=== PATIENT | male | born 1975 | race Caucasian/White ===

== ENCOUNTER 2017-12-24 23:04 | Inpatient (IN) | payer OTHER ==
[~2017-12-24] VITALS: Ht 185.4 cm; Wt 80.8 kg
[~2017-12-24 23:04] MED LIST: ALPOS OP; XALOS OP
[2017-12-24 23:07] VITALS: BP 159/104
--- NOTE | 2017-12-24 23:10 | NUR ---
PATIENT TO BED 2
--- NOTE | 2017-12-24 23:11 | NUR ---
PATIENT PRESENTS TO ED WITH LOWER ABDOMINAL PAIN X5 HOURS. PT STATES N/V; SKIN IS PINK/WARM/DRY; AAOX4 WITH EVEN AND STEADY GAIT; LUNGS CLEAR BL; HR EVEN AND REGULAR; PT DENIES ANY FEVER, CP, SOB, OR COUGH AT THIS TIME; PATIENT STATES PAIN OF 8/10 AT THIS TIME; VSS; PATIENT POSITIONED FOR COMFORT; HOB ELEVATED; BEDRAILS UP X2; BED DOWN. ER MD MADE AWARE OF PT STATUS.
[2017-12-24] MEDS ORDERED: MORPHINE SULFATE 4 MG/ML SYR IVP ONE (23:25)
[2017-12-24] MEDS ORDERED: NACL 0.9% 1,000 ML IV ONE (23:25)
[2017-12-24] MEDS ORDERED: KETOROLAC 30 MG/ML VIAL IVP ONE (23:25)
[2017-12-24 23:53] LABS: BASOPHILS % (AUTO) 0.2 % (0.0-2.0); EOSINOPHILS # (AUTO) 0.1 K/uL (0-0.4); EOSINOPHILS % (AUTO) 0.6 % (0.0-4.0); HEMATOCRIT 43.4 % (36-52); HEMOGLOBIN 14.6 g/dL (12.0-18.0); LYMPHOCYTES # (AUTO) 2.1 K/uL (2.0-11.5); LYMPHOCYTES % (AUTO) 14.8 % (20.5-51.1); MEAN CORPUSCULAR HEMOGLOBIN 30 pg (27-31); MEAN CORPUSCULAR HGB CONC 34 g/dL (33-37); MEAN CORPUSCULAR VOLUME 90.1 fL (80-94); MONOCYTES # (AUTO) 0.7 K/uL (0.8-1.0); MONOCYTES % (AUTO) 5.1 % (1.7-9.3); NEUTROPHILS # (AUTO) 11.5 K/uL (1.8-7.7); NEUTROPHILS % (AUTO) 79.3 % (42.2-75.2); PLATELET COUNT (AUTO) 234 K/uL (140-450); RED BLOOD CELL COUNT(AUTO) 4.82 MIL/uL (4.20-6.10); RED CELL DISTRIBUTION WIDTH 13.2 % (11.6-13.7); WHITE BLOOD COUNT (AUTO) 14.5 K/uL (4.8-10.8)
[2017-12-25 00:08] LABS: ALBUMIN 4.3 g/dL (3.4-5.0); ANION GAP 20.2 (8-16); CARBON DIOXIDE 16.4 mmol/L (21-32); CREATININE 1.3 mg/dL (0.7-1.3); TOTAL BILIRUBIN 0.7 mg/dL (0.0-1.0)
--- NOTE | 2017-12-25 00:08 | NUR ---
Patient appears to be resting comfortably in bed. Vital Signs within normal limits. Respirations even and unlabored.
[2017-12-25 00:10] LABS: POTASSIUM 2.6 mmol/L (3.5-5.1)
[2017-12-25] MEDS ORDERED: POTASSIUM CHLORIDE 10 MEQ TABER PO ONE (00:10)
[2017-12-25] MEDS ORDERED: MORPHINE SULFATE 4 MG/ML SYR IVP ONE (00:25)
[2017-12-25] MEDS ORDERED: MORPHINE SULFATE 5 MG/ML VIAL ONE (00:31)
[2017-12-25] MEDS ORDERED: ONDANSETRON 4 MG/2 ML VIAL IVP PRN (01:35)
[2017-12-25] MEDS ORDERED: HYDROcodone/APAP 5/325 MG 1 TAB TAB PO PRN ×2 (01:35)
[2017-12-25] MEDS ORDERED: ACETAMINOPHEN 325 MG TAB PO PRN (01:35)
[2017-12-25] MEDS ORDERED: MORPHINE SULFATE 2 MG/ML SYR IVP PRN (01:35)
[2017-12-25] MEDS ORDERED: cloNIDine 0.1 MG TAB PO PRN ×2 (01:45→10:34)
[2017-12-25] MEDS ORDERED: ONDANSETRON 4 MG/2 ML VIAL IVP ONE (01:55)
[2017-12-25] MEDS ORDERED: ONDANSETRON 4 MG/2 ML VIAL ONE (01:55)
--- NOTE | 2017-12-25 02:05 | NUR ---
Pt report given to PONCE OWENS. Transfer of care at this time.
[2017-12-25 02:10] VITALS: BP 153/84
--- NOTE | 2017-12-25 02:10 | NUR ---
Admitted from ED , with chief complaint of ABDOMINAL PAIN, NAUSEA&VOMITING. Pt is 42 y/o ,Male, Appropriate, appears sleepy but arousable. Initial assessment done. Vital signs checked. Pt states his pain has mellow down right now. Plan of care discussed. Pt verbalized understanding. Pt oriented to call light, bed, phone,television, bathroom, smoking policy, visiting hours, procedures, ID bracelet on. Belongings list checked. MRSA swab collected.
[2017-12-25] MEDS: NACL 0.9% 1,000 ML IV SCH ×3 (02:45→17:25)
[2017-12-25] MEDS ORDERED: cefTRIAXone 1,000 MG VIAL ONE (03:04)
--- NOTE | 2017-12-25 05:10 | NUR ---
SEEN PT AWAKE CALLING FOR NURSE. VITAL SIGNS CHECKED. PT COMPLAINING OF PAIN. WILL MEDICATE FOR PAIN ORDERED. PT ASKING FOR BLANKET. WILL MEDICATE FOR PAIN ORDERED.
[2017-12-25] MEDS ORDERED: MORPHINE SULFATE 4 MG/ML SYR ONE (05:11)
--- NOTE | 2017-12-25 06:45 | NUR ---
PT VOIDED. URINE STRAINED. NO STONES SEEN. PT APPEARS COMFORTABLE. WILL CONTINUE TO MONITOR.
--- NOTE | 2017-12-25 07:20 | NUR ---
PT REPORT GIVEN TO DAYSHIFT NURSE.
--- NOTE | 2017-12-25 07:25 | NUR ---
PT REFUSED TO PUT ON SEQUENTIAL ON. INFORMED DAYSHIFT NURSE.
--- NOTE | 2017-12-25 07:28 | NUR ---
REPORT RECEIVED FROM SEISMOGRAPH SUPERVISOR NURSE, PT SLEEPING QUIETLY IN NAD, RESP EVEN UNLABORED, SKIN WARM DRY COLOR WNL, AROUSED EASILY BY VOICE, DENIES PAIN OR DISCOMFORT, PLAN OF CARE REVIEWED, ALL SAFETY MEASURES IN PLACE, WILL CONTINUE TO MONITOR.
[2017-12-25 08:00] VITALS: BP 148/87
[2017-12-25] MEDS ORDERED: BRIMONIDINE TARTRATE 0.2% OP 5 ML BTL OP SCH (09:00)
[2017-12-25] MEDS ORDERED: LATANOPROST 0.005% OP 2.5 ML BTL OP SCH ×2 (09:00→20:00)
--- NOTE | 2017-12-25 10:31 | NUR ---
PATIENT HAS BEEN SCREENED AND CATEGORIZED LOW NUTRITION RISK. PATIENT WILL BE SEEN WITHIN 7 DAYS OF ADMISSION. 12/31/[address]
--- NOTE | 2017-12-25 12:44 | NUR ---
DR BURT AT BEDSIDE.
--- NOTE | 2017-12-25 12:44 | NUR ---
CM NOTE INITIAL REVIEW FAXED TO [facility] [phone] WILIAM # [phone]
[2017-12-25] MEDS ORDERED: [UNRECOGNIZED DRUG - CODE] OP (14:47)
[2017-12-25] MEDS ORDERED: TIMO5SOL9 BOTH EYES (14:47)
[2017-12-25] MEDS ORDERED: LATA2.5S8 OP (14:47)
[2017-12-25] MEDS ORDERED: amLODIPine 5 MG TAB PO SCH (14:50)
--- NOTE | 2017-12-25 16:08 | NUR ---
PT RESTING QUIETLY IN NAD, RESP EVNE UNLABORED, STATES HE HAS NO PAIN, URINATED A FEW TIMES TODAY WITHOUT PROBLEM, IVF INFUSING WELL, SITE CLEAR, WILL CONTINUE TO MONITOR.
[2017-12-25] MEDS ORDERED: BRIMONIDINE TART OP SCH (17:00)
[2017-12-25] MEDS ORDERED: BRINZOLAMIDE OP SCH (17:00)
[2017-12-25] MEDS: OPTH OP SCH ×2 (18:50→19:18)
[2017-12-25] MEDS: SIMBRINZA OP SCH (18:50)
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
[2017-12-25] MEDS: TIMOLOL 0.5% OP SCH (19:18)
--- NOTE | 2017-12-25 19:25 | NUR ---
REPORT RECEIVED FROM DAY SHIFT NURSE, PT RESTING IN BED COMFORTABLY, NO S/S OF DISTRESS NOTED, RESP EVEN UNLABORED, SKIN WARM DRY COLOR WNL, IV TO R AC 18G, PATENT AND INTACT, INFUSING WELL. INITIAL ASSESSMENT COMPLETED, PLAN OF CARE REVIEWED, ALL SAFETY MEASURES IN PLACE, BOARD UPDATED, WILL CONTINUE TO MONITOR.
--- NOTE | 2017-12-25 19:28 | NUR ---
REPORT GIVEN TO MANAGER ED NURSE, PT IN STABLE CONDITION.
[2017-12-25 20:00] VITALS: BP 149/87
--- NOTE | 2017-12-25 20:30 | NUR ---
PT SEEN SITTING UP IN BED WATCHING TV WITH AT THE BEDSIDE. NO S/S OF DISTRESS NOTED
[2017-12-25] MEDS ORDERED: LATANOPROST 0.005% OP SCH (21:00)
[2017-12-25] MEDS ORDERED: TIMOLOL OP 0.5% 5 ML BTL BOTH EYES SCH (21:00)
[2017-12-25] MEDS ORDERED: OPTH OP SCH (21:00)
--- NOTE | 2017-12-25 21:00 | NUR ---
PT STATES HE TOOK HIS NIGHT TIME EYE DROPS EARLIER HE DOES AT HOME
--- NOTE | 2017-12-25 22:00 | NUR ---
PT GIVEN WARM BLANKET PER REQUEST, AT THE BEDSIDE, RR EVEN/UNLABORED
--- NOTE | 2017-12-25 22:45 | NUR ---
PT UP AMBULATING TO THE BATHROOM, NO S/S OF DISTRESS NOTED
[2017-12-26] MEDS: NACL 0.9% 1,000 ML IV SCH ×2 (02:15→09:31)
--- NOTE | 2017-12-26 02:32 | NUR ---
PT RESTING COMFORTABLY IN BED, FAMILY AT THE BEDSIDE, ALL NEEDS MET, RR EVEN/UNLABORED, WILL CONTINUE TO MONITOR
[2017-12-26 04:00] VITALS: BP 139/85
[2017-12-26 06:50] LABS: BASOPHILS % (AUTO) 0.3 % (0.0-2.0); EOSINOPHILS # (AUTO) 0.1 K/uL (0-0.4); EOSINOPHILS % (AUTO) 1.3 % (0.0-4.0); HEMOGLOBIN 13.6 g/dL (12.0-18.0); MEAN CORPUSCULAR HEMOGLOBIN 31 pg (27-31); MEAN CORPUSCULAR HGB CONC 33 g/dL (33-37); MONOCYTES # (AUTO) 0.6 K/uL (0.8-1.0); MONOCYTES % (AUTO) 7.3 % (1.7-9.3); NEUTROPHILS # (AUTO) 4.2 K/uL (1.8-7.7); NEUTROPHILS % (AUTO) 53.1 % (42.2-75.2); PLATELET COUNT (AUTO) 179 K/uL (140-450); RED BLOOD CELL COUNT(AUTO) 4.41 MIL/uL (4.20-6.10); RED CELL DISTRIBUTION WIDTH 13.3 % (11.6-13.7); WHITE BLOOD COUNT (AUTO) 7.8 K/uL (4.8-10.8)
--- NOTE | 2017-12-26 07:23 | NUR ---
REPORT GIVEN TO DAY NURSE FOR CONTINUITY OF CARE, PT IN STABLE CONDITION. NO S/S OF DISTRESS NOTED
[2017-12-26 07:26] LABS: ALBUMIN 3.3 g/dL (3.4-5.0); ANION GAP 11.1 (8-16); CARBON DIOXIDE 23.5 mmol/L (21-32); CREATININE 0.9 mg/dL (0.7-1.3); MAGNESIUM 1.9 mg/dL (1.8-2.4); POTASSIUM 3.6 mmol/L (3.5-5.1); TOTAL BILIRUBIN 0.7 mg/dL (0.0-1.0)
--- NOTE | 2017-12-26 07:28 | NUR ---
REPORT RECEIVED FROM WEB PRODUCTION ARTIST, PT SLEEPING QUIETLY IN NAD, RESP EVEN UNLABORED, SKIN WARM DRY COLOR WNL, AROUSES EASILY, DENIES PAIN OR DISCOMFORT, PLAN OF CARE REVIEWED, ALL SAFETY MEASURES IN PLACE, WILL CONTINUE TO MONITOR.
[2017-12-26 08:00] VITALS: BP 152/94
--- NOTE | 2017-12-26 08:30 | NUR ---
AM MEDS GIVEN, PT MILES WELL, PT DENIES PAIN OR DISCOMFORT ALL NIGHT, STATES URINATED MULTIPLE TIMES WITHOUT PAIN OR DISCOMFORT, NO VISIBLE STONE NOTED IN STRAINED URINE, AWAITING MD QUIÑONEZ, PT WISHES TO GO HOME TODAY. WILL CONTINUE TO MONITOR.
[2017-12-26] MEDS: TIMOLOL 0.5% OP SCH (09:00)
[2017-12-26] MEDS: OPTH OP SCH ×3 (09:00→14:00)
[2017-12-26] MEDS: SIMBRINZA OP SCH ×2 (09:00→14:00)
[2017-12-26] MEDS ORDERED: amLODIPine 5 MG TAB PO SCH (09:00)
--- NOTE | 2017-12-26 10:05 | NUR ---
PT SLEEPING ON BED WITHOUT PROBLEM, RESP EVEN UNLABORED, SKIN WARMD RY COLOR WNL, IVF INFUSING WELL,M SITE WITHIN , AWAITING MD QUIÑONEZ, WILL CONTINUE TO MONITOR
[2017-12-26] MEDS ORDERED: CEPH250C16 PO (13:16)
[2017-12-26] MEDS ORDERED: ACET-2869 PO (13:17)
--- NOTE | 2017-12-26 13:39 | NUR ---
CM NOTE CONCURRENT REVIEW FAXED TO [facility] [phone] [place] # [phone]
--- NOTE | 2017-12-26 14:00 | NUR ---
DC INSTRUCTIONS AND RX GIVEN AND EXPLAINED TO PT, PT VERBALIZED FULL UNDERSTANDING, PT UP AMBULATING WITHOUT PROBLEM, IV DC'D, CATH TIP INTACT, BLEEDING CONTROLLED, PT DENIES ANY PAIN OR DISCOMFORT, DC HOME NOW.
== END 2017-12-26 14:00 | disposition home or self-care (01) | DRG 694 ==
LOC: MED 23:04 → MTU 12-25 01:31
PROVIDERS: ADMIT Hospitalist; ATTEND Hospitalist
DX: N13.2 Hydronephrosis with renal and ureteral calculous obstruction (principal); E87.6 Hypokalemia; H40.9 Unspecified glaucoma
CPT/HCPCS: 36415; 80053; 83735; 84100; 85025; 87081; 96374; 96375; 96376; 99285; J0696; J1885; J2270; J2405; J7030; J7060

== ENCOUNTER 2018-03-05 13:29 | Emergency (ER) | payer OTHER ==
[~2018-03-05] VITALS: Ht 182.9 cm; Wt 86.2 kg
[~2018-03-05 13:29] MED LIST changes: +ACET-2869 PO; +CEPH250C16 PO; +LATA2.5S8 OP; +TIMO5SOL9 BOTH EYES; +[UNRECOGNIZED DRUG - CODE] OP
[2018-03-05 13:42] VITALS: BP 155/95
[2018-03-05] MEDS ORDERED: NACL 0.9% 1,000 ML IV SCH ×2 (14:19→16:06)
[2018-03-05] MEDS ORDERED: HYDROmorphone PFS 2 MG/ML SYR IVP ONE (14:20)
[2018-03-05] MEDS ORDERED: KETOROLAC 30 MG/ML VIAL IVP ONE (14:20)
[2018-03-05] MEDS ORDERED: METOCLOPRAMIDE 10 MG/2 ML INJ VIAL IVP ONE (14:20)
[2018-03-05] MEDS ORDERED: GLYCOPYRROLATE 0.2 MG/ML VIAL IV ONE (14:20)
[2018-03-05] MEDS ORDERED: ACETAMINOPHEN 325 MG TAB PO PRN (16:10)
[2018-03-05] MEDS ORDERED: ONDANSETRON 4 MG/2 ML VIAL IVP PRN (16:10)
[2018-03-05] MEDS ORDERED: MORPHINE SULFATE 4 MG/ML SYR IVP PRN (16:10)
[2018-03-05] MEDS ORDERED: HYDROcodone/APAP 5/325 MG 1 TAB TAB PO PRN ×2 (16:10)
[2018-03-05] MEDS ORDERED: BRINZOLAMIDE OP SCH (17:00)
[2018-03-05] MEDS ORDERED: BRIMONIDINE TART OP SCH (17:00)
[2018-03-05 17:48] VITALS: BP 104/64
[2018-03-05] MEDS ORDERED: LATANOPROST 0.005% OP 2.5 ML BTL OP SCH (21:00)
[2018-03-05] MEDS ORDERED: BRIMONIDINE TARTRATE 0.2% OP 5 ML BTL OP SCH (21:00)
[2018-03-05] MEDS ORDERED: TIMOLOL OP 0.5% 5 ML BTL BOTH EYES SCH (21:00)
== END 2018-03-05 17:49 | disposition home or self-care (01) ==
LOC: MED 13:29
DX: N20.1 Calculus of ureter (principal); N13.9 Obstructive and reflux uropathy, unspecified
CPT/HCPCS: 74176; 96374; 96375; 99284; J1170; J1885; J2765; J3490; J7030

== ENCOUNTER 2022-02-16 18:38 | Emergency (ER) | payer OTHER ==
[~2022-02-16] VITALS: Ht 182.9 cm; Wt 86.2 kg
[~2022-02-16 18:38] MED LIST changes: -ACET-2869 PO; +HYDR-5122 PO; +LATA2.5S14 OP; -LATA2.5S8 OP
[2022-02-16 18:42] VITALS: BP 171/117
--- NOTE | 2022-02-16 18:49 | NUR ---
PT W/C ASSISTED TO BED 01.
--- NOTE | 2022-02-16 18:57 | NUR ---
DR. WARNER WITH PT AT BEDSIDE FOR FURTHER EVALUATION.
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
[2022-02-16] MEDS ORDERED: MORPHINE SULFATE 4 MG/ML SYR IVP ONE (19:05)
--- NOTE | 2022-02-16 19:21 | NUR ---
GAVE REPORT TO ROMAN HOWELL. TRANSFER OF CARE AT THIS TIME.
[2022-02-16 19:24] LABS: BASOPHILS % (AUTO) 0.2 % (0.0-2.0); EOSINOPHILS # (AUTO) 0.1 K/uL (0-0.4); EOSINOPHILS % (AUTO) 1.1 % (0.0-4.0); HEMATOCRIT 40.3 % (36-52); HEMOGLOBIN 13.7 g/dL (12.0-18.0); LYMPHOCYTES # (AUTO) 1.1 K/uL (2.0-11.5); LYMPHOCYTES % (AUTO) 10.1 % (20.5-51.1); MEAN CORPUSCULAR HEMOGLOBIN 31 pg (27-31); MEAN CORPUSCULAR HGB CONC 34 g/dL (33-37); MEAN CORPUSCULAR VOLUME 90.7 fL (80-94); MONOCYTES # (AUTO) 0.6 K/uL (0.8-1.0); MONOCYTES % (AUTO) 5.7 % (1.7-9.3); NEUTROPHILS # (AUTO) 9.1 K/uL (1.8-7.7); NEUTROPHILS % (AUTO) 82.9 % (42.2-75.2); PLATELET COUNT (AUTO) 206 K/uL (140-450); RED BLOOD CELL COUNT(AUTO) 4.44 MIL/uL (4.20-6.10); RED CELL DISTRIBUTION WIDTH 13.1 % (11.6-13.7)
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
[2022-02-16 19:41] LABS: ALBUMIN 3.9 g/dL (3.4-5.0); ANION GAP 11.6 (8-16); CARBON DIOXIDE 29.8 mmol/L (21-32); CREATININE 0.9 mg/dL (0.6-1.3); POTASSIUM 4.4 mmol/L (3.5-5.1); TOTAL BILIRUBIN 0.4 mg/dL (0.0-1.0)
--- NOTE | 2022-02-16 20:22 | NUR ---
PT TAKEN TO CT
--- NOTE | 2022-02-16 20:46 | NUR ---
PT MOVED TO ER BED 2
--- NOTE | 2022-02-16 21:37 | NUR ---
DOYLE (DAUGHTER) [phone]. DAUGHTER HAS BEEN VISITING AT BEDSIDE
[2022-02-16] MEDS ORDERED: BACITRACIN OINT 500 UNITS/GM PKT TP ONE (23:30)
[2022-02-16] MEDS ORDERED: CEPH-588 PO (23:37)
[2022-02-16] MEDS ORDERED: ERYT5OIN51 OP (23:38)
[2022-02-16] MEDS ORDERED: BACI1PAC6 TP (23:53)
[2022-02-17] MEDS ORDERED: FLUORESCEIN OPTH STRIP 1 MG OP ONE (00:05)
[2022-02-17] MEDS ORDERED: TETRACAINE HCL/PF 0.5% OPTH 4 ML BTL ONE (00:08)
[2022-02-17] MEDS ORDERED: FLUORESCEIN OPTH STRIP 1 MG ONE (00:08)
[2022-02-17] MEDS ORDERED: TETRACAINE HCL/PF 0.5% OPTH 4 ML BTL OP ONE (00:10)
[2022-02-17 00:25] VITALS: BP 143/98
== END 2022-02-17 00:25 | disposition home or self-care (01) ==
LOC: MED 18:38
DX: S20.211A Contusion of right front wall of thorax, initial encounter (principal); S21.139A Puncture wound without foreign body of unspecified front wall of thorax without penetration into thoracic cavity, initial encounter; Z79.899 Other long term (current) drug therapy; W22.8XXA Striking against or struck by other objects, initial encounter; Y93.89 Activity, other specified; Y92.89 Other specified places as the place of occurrence of the external cause; Y99.8 Other external cause status
CPT/HCPCS: 36415; 71045; 71260; 74177; 80053; 85025; 96374; 99285; J2270; Q9967